=== PATIENT | female | born 2000 | race Caucasian/White ===

== ENCOUNTER 2024-04-22 07:46 | Emergency (ER) | payer OTHER, SELFPAY ==
[2024-04-22 08:12] VITALS: BP 98/75; PULSE 86; TEMP 38.2; O2SAT 100; BMI 20.3
[2024-04-22 08:49] VITALS: BP 100/80; PULSE 68; O2SAT 100
--- NOTE | 2024-04-22 08:49 | ED.GENADUL1 ---
HPI HPI - General Adult General Chief complaint: Skin/Abscess/Foreign Body Stated complaint: GENERAL WEAKNESS/HEADACHE Time Seen by Provider: 04/22/24 07:51 History of Present Illness HPI narrative: Patient presents to ED complaining of left breast tenderness and redness. She said she noticed yesterday her left breast was sore and then today she noticed some redness. She has a low-grade temperature of 100.8. She is alert and oriented no acute distress no nausea vomiting. She is breast-feeding her 1-1/2-year-old baby. Patient states she has not had this happen before. She did get in the hot shower and try to massage it she said no purulent drainage has come out just regular breastmilk. The patient denies any abdominal pain chest pain cough or any other concerns at this time. Related Data Home Medications ?Medication ?Instructions ?Recorded ?Confirmed No Known Home Medications 04/22/24 04/22/24 Previous Rx's ?Medication ?Instructions ?Recorded acetaminophen 325 mg tablet 325 mg PO Q6H PRN pain #20 tabs 04/22/24 (Tylenol) dicloxacillin 500 mg capsule 500 mg PO Q6H 7 days #28 caps 04/22/24 ibuprofen 800 mg tablet 800 mg PO Q8H #20 tabs 04/22/24 Allergies Allergy/AdvReac Type Severity Reaction Status Date / Time No Known Drug Allergies Allergy Verified 04/22/24 08:15 Opioid HPI Opioid Management Most Recent Opioid Data: No Data to Display Review of Systems ROS Status of ROS 10 or more systems reviewed and unremarkable except as noted in history and below PFSH PFSH Social History Little interest or pleasure in doing things: not at all Feeling down, depressed, or hopeless: not at all Exam Narrative Exam Narrative: Time Seen: [] Vital Signs: [Per nurse's notes.] General: [Alert] Skin: [Warm, dry, no rash.] Head: [Normocephalic, atraumatic.] Neck: [Supple, trachea midline.] Eye: [Pupils are equal, round and reactive to light, extraocular movements are intact, normal conjunctiva.] Ears, nose, mouth and throat: oral mucosa moist. Cardiovascular: [Regular rate and rhythm, no murmur.] Respiratory: [Lungs are clear to auscultation, respirations are non-labored, breath sounds are equal.] Chest wall: Tenderness to palpation and streaking erythematous skin at the 11 o'clock position on the left breast. No severe abscess no purulent discharge Gastrointestinal: [Soft, nontender, non distended, normal bowel sounds.] MSK: 5 out of 5 muscle strength x 4 extremities no calf pain or edema Lymphatics: [No lymphadenopathy.] Psychiatric: [Cooperative, appropriate mood & affect.] Neurological: [Alert and oriented to person, place, time, and situation, no focal neurological deficit observed.] Constitutional Vital Signs, click to edit/add: Last Vital Signs Temp 100.8 F H 04/22/24 08:12 Pulse 86 04/22/24 08:12 Resp 18 04/22/24 08:12 BP 98/75 04/22/24 08:12 Pulse Ox 100 04/22/24 08:12 Course Vital Signs Vital signs: Vital Signs Temperature 100.8 F H 04/22/24 08:12 Pulse Rate 86 04/22/24 08:12 Respiratory Rate 18 04/22/24 08:12 Blood Pressure 98/75 04/22/24 08:12 Pulse Oximetry 100 04/22/24 08:12 Temperature 100.8 F H 04/22/24 08:12 Pulse Rate 86 04/22/24 08:12 Respiratory Rate 18 04/22/24 08:12 Blood Pressure 98/75 04/22/24 08:12 Pulse Oximetry 100 04/22/24 08:12 Medical Decision Making MDM Narrative Medical decision making narrative: Patient has a low-grade fever with evidence of mastitis on exam. Patient will be sent home with antibiotics and Tylenol and Motrin for the pain and fever. Please continue to breast-feed, soak with warm compresses, hot shower warm bath and continue to express of breastmilk. Return to emergency room certainly if you cannot keep the antibiotics down or if there are any further concerns like severe fever vomiting weakness or any other concerns. Follow-up with [employer] to ensure resolution. Patient is comfortable with care plan for home. Differential Diagnosis Differential Diagnosis: Viral syndrome, mastitis, abscess, cellulitis Discharge Plan Discharge Chief Complaint: Skin/Abscess/Foreign Body Clinical Impression: Mastitis Patient Disposition: Home, Self-Care Time of Disposition Decision: 08:43 Condition: Good Mode of Transportation: Private Vehicle Prescriptions / Home Meds: New dicloxacillin 500 mg capsule 500 mg PO Q6H 7 Days Qty: 28 0RF ibuprofen 800 mg tablet 800 mg PO Q8H Qty: 20 0RF acetaminophen [Tylenol] 325 mg tablet 325 mg PO Q6H PRN (Reason: pain) Qty: 20 0RF No Action No Known Home Medications Print Language: Swedish Instructions: Mastitis (ED) Referrals: Physician,Non-Staff, MD [Primary Care Provider] - 1 week
== END 2024-04-22 08:50 | disposition home or self-care (01) ==
PROVIDERS: Emergency Provider Emergency Medicine
DX: N61.0 Mastitis without abscess (principal); R50.9 Fever, unspecified
CPT/HCPCS: 99283

== ENCOUNTER 2024-06-22 12:26 | Emergency (ER) | payer OTHER, SELFPAY ==
[2024-06-22 12:32] VITALS: BP 102/73; PULSE 96; TEMP 37.4; O2SAT 98; BMI 20.6
--- OUTSIDE RECORDS SUMMARY | 2024-06-22 12:45 | XMS_ITS | CCD ---
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 WBC (Bld) 0.5 % Normal . [facility] Comment on above: Order Comment: Comme nt Draw at 630 am Performed By: #### C BC #### [address] Eosinophils (Bld) [#/Vol] 0.5 10*3/uL High 0.0-0.45 [facility] Comment on above: Order Comment: Comme nt Draw at 630 am Performed By: #### C BC #### [address] Eosinophils/100 WBC (Bld) 4.0 % Normal . [facility] Comment on above: Order Comment: Comme nt Draw at 630 am Performed By: #### C BC #### [address] Erythrocyte distribution width (RBC) [Ratio] 12.2 % Normal 11.9-15.3 [facility] Comment on above: Order Comment: Comme nt Draw at 630 am Performed By: #### C BC #### [address] Hematocrit (Bld) [Volume fraction] 33.4 % Low 34.0-46.4 [facility] Comment on above: Order Comment: Comme nt Draw at 630 am Performed By: #### C BC #### [address] Hemoglobin (Bld) [Mass/Vol] 11.3 g/dL Low 11.8-15.4 [facility] Comment on above: Order Comment: Comme nt Draw at 630 am Performed By: #### C BC #### [address] Lymphocytes (Bld) [#/Vol] 3.7 10*3/uL Normal 1.00-4.8 [facility] Comment on above: Order Comment: Comme nt Draw at 630 am Performed By: #### C BC #### [address] Lymphocytes/100 WBC (Bld) 28.3 % Normal . [facility] Comment on above: Order Comment: Comme nt Draw at 630 am Performed By: #### C BC #### [address] [place] [address] [place] MCH (RBC) [Entitic mass] 30.9 pg Normal 24.7-34.3 [facility] Comment on above: Order Comment: Comme nt Draw at 630 am Performed By: #### C BC #### [address] MCV (RBC) [Entitic vol] 91.1 fL Normal 80-100 [facility] Comment on above: Order Comment: Comme nt Draw at 630 am Performed By: #### C BC #### [address] Mean Corpuscular HGB Conc 33.9 g/dL Normal 32.0-35.0 [facility] Comment on above: Order Comment: Comme nt Draw at 630 am Performed By: #### C BC #### [address] Monocytes (Bld) [#/Vol] 1.1 10*3/uL High 0.0-0.8 [facility] Comment on above: Order Comment: Comme nt Draw at 630 am Performed By: #### C BC #### [address] Monocytes/100 WBC (Bld) 8.5 % Normal . [facility] Comment on above: Order Comment: Comme nt Draw at 630 am Performed By: #### C BC #### [address] Neutrophils (Bld) [#/Vol] 7.6 10*3/uL Normal 1.8-7.7 [facility] Comment on above: Order Comment: Comme nt Draw at 630 am Performed By: #### C BC #### [place] [address] [place] Neutrophils/100 WBC (Bld) 58.7 % Normal . [facility] Comment on above: Order Comment: Comme nt Draw at 630 am Performed By: #### C BC #### [place] [address] [place] NRBC% 0.1 /100{WBC} Normal 0-0.5 [facility] Comment on above: Order Comment: Comme nt Draw at 630 am Performed By: #### C BC #### [address] Platelet mean volume (Bld) [Entitic vol] 10.7 fL Normal 6.3-10.7 [facility] Comment on above: Order Comment: Comme nt Draw at 630 am Performed By: #### C BC #### [address] Platelets (Bld) [#/Vol] 166 10*3/uL Normal 150-450 [facility] Comment on above: Order Comment: Comme nt Draw at 630 am Performed By: #### C BC #### [address] RBC (Bld) [#/Vol] 3.67 10*6/uL Normal 3.60-5.00 [facility] Comment on above: Order Comment: Comme nt Draw at 630 am Performed By: #### C BC #### [address] WBC (Bld) [#/Vol] 12.9 10*3/uL High 3.8-11.6 [facility] Comment on above: Order Comment: Comme nt Draw at 630 am Performed By: #### C BC #### [place] [address] [place] Eosinophils Auto (Bld) [#/Vo l]Ordered By: Gera Bower on 10-24-2022 Eosinophils (Bld) [#/Vol] 0.5 10*3/uL 0.0-0.45 [facility] Eosinophils/100 WBC Auto (Bl d)Ordered By: Gera Bower on 10-24-2022 Eosinophils/100 WBC (Bld) 4.0 % . [facility] Erythrocyte distribution wid th Auto (RBC) [Ratio]Ordered By: Gera Bower on 10-24-2022 Erythrocyte distribution width (RBC) [Ratio] 12.2 % 11.9-15.3 [facility] Hematocrit Auto (Bld) [Volum e fraction]Ordered By: Gera Bower on 10-24-2022 Hematocrit (Bld) [Volume fraction] 33.4 % 34.0-46.4 [facility] Hemoglobin [Mass/volume] in BloodOrdered By: Gera Bower on 10-24-2022 Hemoglobin (Bld) [Mass/Vol] 11.3 g/dL 11.8-15.4 [facility] Leukocytes [#/volume] correc rodriguez for nucleated erythrocytes in Blood by Automated counOrdered By: Gera Bower on 10-24-2022 WBC corrected for nucl RBC Auto (Bld) [#/Vol] 12.9 10*3/uL 3.8-11.6 [facility] Lymphocytes Auto (Bld) [#/Vo l]Ordered By: Gera Bower on 10-24-2022 Lymphocytes (Bld) [#/Vol] 3.7 10*3/uL 1.00-4.8 [facility] Lymphocytes/100 WBC Auto (Bl d)Ordered By: Gera Bower on 10-24-2022 Lymphocytes/100 WBC (Bld) 28.3 % . [facility] MCH Auto (RBC) [Entitic mass ]Ordered By: Gera Bower on 10-24-2022 MCH (RBC) [Entitic mass] 30.9 pg 24.7-34.3 [facility] MCHC Auto (RBC) [Mass/Vol]Or dered By: Gera Bower on 10-24-2022 MCHC (RBC) [Mass/Vol] 33.9 g/dL 32.0-35.0 [facility] MCV Auto (RBC) [Entitic vol] Ordered By: Gera Bower on 10-24-2022 MCV (RBC) [Entitic vol] 91.1 fL 80-100 [facility] Monocytes Auto (Bld) [#/Vol] Ordered By: Gera Bower on 10-24-2022 Monocytes (Bld) [#/Vol] 1.1 10*3/uL 0.0-0.8 [facility] Monocytes/100 WBC Auto (Bld) Ordered By: Gera Bower on 10-24-2022 Monocytes/100 WBC (Bld) 8.5 % . [facility] Neutrophils Auto (Bld) [#/Vo l]Ordered By: Gera Bower on 10-24-2022 Neutrophils (Bld) [#/Vol] 7.6 10*3/uL 1.8-7.7 [facility] Neutrophils/100 WBC Auto (Bl d)Ordered By: Gera Bower on 10-24-2022 Neutrophils/100 WBC (Bld) 58.7 % . [facility] Nucleated erythrocytes [Pres ence] in Blood by Automated countOrdered By: Gera Bower on 10-24-2022 Nucleated RBC Auto Ql (Bld) 0.1 /100{WBC} 0-0.5 [facility] Platelet mean volume Auto (B ld) [Entitic vol]Ordered By: Gera Bower on 10-24-2022 Platelet mean volume (Bld) [Entitic vol] 10.7 fL 6.3-10.7 [facility] Platelets Auto (Bld) [#/Vol] Ordered By: Gera Bower on 10-24-2022 Platelets (Bld) [#/Vol] 166 10*3/uL 150-450 [facility] RBC Auto (Bld) [#/Vol]Ordere d By: Gera Bower on 10-24-2022 RBC (Bld) [#/Vol] 3.67 10*6/uL 3.60-5.00 [facility] WBC Auto (Bld) [#/Vol]Ordere d By: Gera Bower on 10-24-2022 WBC (Bld) [#/Vol] 12.9 10*3/uL 3.8-11.6 [facility] ABO/RH Typeon 10-23-2022 ABO and Rh group Nom (Bld) Blood group O Rh(D) negative Normal [facility] Comment on above: Result Comment: PERF ORMED BY: [facility] [address] [place] [address] PATHOLOGIST PASSENGER AGENT STEFF RHODES M.D. Antibody Identificationon Antibody Identification RHOD Normal [facility] Blood Bank Pathologist Revie won 10-23-2022 Blood Bank Pathologist Review Sent to Pathology Normal [facility] Comment on above: Result Comment: PERF ORMED BY: [place] [address] PATHOLOGIST PASSENGER AGENT STEFF RHODES M.D. Complete Blood Count Auto Di ffon 10-23-2022 Basophils (Bld) [#/Vol] 0.1 10*3/uL Normal 0.0-0.2 [facility] Comment on above: Result Comment: PERF ORMED BY: [place] [address] PATHOLOGIST PASSENGER AGENT STEFF RHODES M.D. Performed By: #### R UT W RFX #### [facility] , #### CBC #### [facility] [address] [place] [address] Basophils/100 WBC (Bld) 0.5 % Normal . [facility] Comment on above: Performed By: #### R UT W RFX #### [facility] , #### CBC #### [facility] [address] [place] [address] [place] Eosinophils (Bld) [#/Vol] 0.3 10*3/uL Normal 0.0-0.45 [facility] Comment on above: Performed By: #### R UT W RFX #### [facility] , #### CBC #### [facility] [address] [place] [address] [place] Eosinophils/100 WBC (Bld) 2.0 % Normal . [facility] Comment on above: Performed By: #### R UT W RFX #### [facility] , #### CBC #### [facility] [address] [place] [address] Erythrocyte distribution width (RBC) [Ratio] 12.0 % Normal 11.9-15.3 [facility] Comment on above: Performed By: #### R UT W RFX #### [facility] , #### CBC #### [facility] [address] [place] [address] Hematocrit (Bld) [Volume fraction] 38.8 % Normal 34.0-46.4 [facility] Comment on above: Performed By: #### R UT W RFX #### [facility] , #### CBC #### [address] Hemoglobin (Bld) [Mass/Vol] 13.2 g/dL Normal 11.8-15.4 [facility] Comment on above: Performed By: #### R UT W RFX #### [facility] , #### CBC #### [address] Lymphocytes (Bld) [#/Vol] 3.1 10*3/uL Normal 1.00-4.8 [facility] Comment on above: Performed By: #### R UT W RFX #### [facility] , #### CBC #### [address] Lymphocytes/100 WBC (Bld) 23.7 % Normal . [facility] Comment on above: Performed By: #### R UT W RFX #### [facility] , #### CBC #### [address] MCH (RBC) [Entitic mass] 31.1 pg Normal 24.7-34.3 [facility] Comment on above: Performed By: #### R UT W RFX #### [facility] , #### CBC #### [address] MCV (RBC) [Entitic vol] 91.6 fL Normal 80-100 [facility] Comment on above: Performed By: #### R UT W RFX #### [facility] , #### CBC #### [facility] [address] [place] [address] Mean Corpuscular HGB Conc 34.0 g/dL Normal 32.0-35.0 [facility] Comment on above: Performed By: #### R UT W RFX #### [facility] , #### CBC #### [facility] [address] [place] [address] Monocytes (Bld) [#/Vol] 1.2 10*3/uL High 0.0-0.8 [facility] Comment on above: Performed By: #### R UT W RFX #### [facility] , #### CBC #### [facility] [address] [place] [address] Monocytes/100 WBC (Bld) 8.9 % Normal . [facility] Comment on above: Performed By: #### R UT W RFX #### [facility] , #### CBC #### [facility] [address] [place] [address] Neutrophils (Bld) [#/Vol] 8.6 10*3/uL High 1.8-7.7 [facility] Comment on above: Performed By: #### R UT W RFX #### [facility] , #### CBC #### [facility] [address] [place] [address] Neutrophils/100 WBC (Bld) 64.9 % Normal . [facility] Comment on above: Performed By: #### R UT W RFX #### [facility] , #### CBC #### [facility] [address] [place] [address] NRBC% 0.1 /100{WBC} Normal 0-0.5 [facility] Comment on above: Performed By: #### R UT W RFX #### [facility] , #### CBC #### [facility] [address] [place] [address] Platelet mean volume (Bld) [Entitic vol] 10.4 fL Normal 6.3-10.7 [facility] Comment on above: Performed By: #### R UT W RFX #### [facility] , #### CBC #### [facility] [address] [place] [address] Platelets (Bld) [#/Vol] 177 10*3/uL Normal 150-450 [facility] Comment on above: Performed By: #### R UT W RFX #### [facility] , #### CBC #### [facility] [address] [place] [address] RBC (Bld) [#/Vol] 4.24 10*6/uL Normal 3.60-5.00 [facility] Comment on above: Performed By: #### R UT W RFX #### [facility] , #### CBC #### [facility] [address] [place] [address] WBC (Bld) [#/Vol] 13.3 10*3/uL High 3.8-11.6 [facility] Comment on above: Performed By: #### R UT W RFX #### [facility] , #### CBC #### [facility] [address] [place] [address] Randy 10-23-2022 L Specimen: [id number] Received: 10/23/22 Status: NELLY Torres Num: [id number] Spec Type: Impression Subm Dr: Gera Bower DO Tissues: PATHBBK Procedures: PATHREVIEW Age/ Patient Sex Location Account Attending Physician Carli Infante [id number] Gera Bower DO SPEC NUM: [id number] RECD: 10/23/22 STATUS: ARMAANRosaura TORRES NUM: [id number] TEX: 10/23/22- SUBM DR: Gera Bowre DO ENTERED: 10/23/[address] [facility] DR: SYLVIE TYPE: Impression DEPT: [place] ENTERED BY: [id number] RECV BY: [id number] ORDERED: PATHREVIEW ORDERED: PATHREVIEW Blood Bank Results Date Time Test Result Flag (u) Normal Range 10/23/22 1344 Ab Screen POSITIVE AB ID 10/23/22 1344 RhoGam D Pathologist Review 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 Specimen: [id number] Received: 10/23/22 Status: NELLY Melissa Num: [id number] Spec Type: Impression Subm Dr: Gera Bower DO Tissues: PATHBBK Procedures: PATHREVIEW Patient: Carli Infante [id number] (Continued) Signed (signatur e on file) Sandi Collier MD 10/24/22 0957 Normal [facility] RFX RhoGAM Screenon RFX RhoGAM Screen Negative Normal [facility] RFX RhoGAM Vials Indicatedon 10-23-2022 RFX RhoGAM Vials Indicated 1 Dose Normal [facility] Comment on above: Result Comment: 1 vi al of RhoGAM is equivalent to 300 mcg. 1 vial will suppress alloimmunization by 15 mL of red cells or 30 mL of whole blood. RHOGAM DOSEon 10-23-2022 RHOGAM DOSE Post Normal [facility] Comment on above: Result Comment: PERF ORMED BY: [place] [address] PATHOLOGIST PASSENGER AGENT STEFF RHODES M.D. RPR w/rfx to Quant TP Abson 10-23-2022 RPR Quantitative 1:2 High NonRea<1:1 [facility] Comment on above: Performed By: #### R UT W RFX #### [facility] , #### CBC #### [facility] [address] [place] [address] [place] RPR, Rfx Quant RPR Reactive Critically abnormal Non Reactive [facility] Comment on above: Performed By: #### R UT W RFX #### [facility] , #### CBC #### [facility] [address] [place] [address] [place] Treponema Pallidum Antibodies Reactive Critically abnormal Non Reactive [facility] Comment on above: Result Comment: Perf ormed at: - [facility] [address] [id number] Joinery Machinist: Ramu Gibbons PhD, Phone: [phone] PERFORMED BY: [place] [address] PATHOLOGIST PASSENGER AGENT STEFF RHODES M.D. Performed By: #### R UT W RFX #### [facility] , #### CBC #### [facility] [address] [place] [address] [place] Rhogam Workupon 10-23-2022 Rhogam Candidate Yes Normal [facility] Comment on above: Result Comment: PERF ORMED BY: [place] [address] PATHOLOGIST PASSENGER AGENT STEFF RHODES M.D. ABO and Rh group Nom (Bld) Blood group O Rh(D) negative Normal [facility] Amphetamine Screen Ql (U)Ord ered By: Gera Bower on 10-22-2022 Amphetamines Ql (U) Negative Negative [facility] Automated erythrocytes count in urine sediment (number/area)Ordered By: Gera Bower on 10-22-2022 RBC Auto (Urine sed) [#/Area] 0-1 [HPF] 0-4 [facility] Automated leukocytes count i n urine sediment (number/area)Ordered By: Gera Bower on 10-22-2022 WBC Auto (Urine sed) [#/Area] 20-49 [HPF] 0-4 [facility] Barbiturates [Presence] in U rine by Screen methodOrdered By: Gera Bower on 10-22-2022 Barbiturates Screen Ql (U) Negative Negative [facility] Benzodiazepines Screen Ql (U )Ordered By: Gera Bower on 10-22-2022 Benzodiazepines Ql (U) Negative Negative [facility] Benzoylecgonine [Presence] i n Urine by Screen methodOrdered By: Gera Bower on 10-22-2022 Benzoylecgonine Screen Ql (U) Negative Negative [facility] Bilirubin Test strip Ql (U)O rdered By: Gera Bower on 10-22-2022 Bilirubin Ql (U) Negative Negative [facility] Color Auto (U)Ordered By: Suze Bower on 10-22-2022 Color (U) Yellow Yellow [facility] Dipstick and Microscopicon 0 10-22-2022 Appearance (U) Clear Normal Clear [facility] Comment on above: Order Comment: Name Collection Type:: Clean-Voided Midstream Performed By: #### O BUDS, ADDONUAPLUS, CUU #### [facility] [address] [place] [address] [place] Bacteria,Urine None Seen Normal None Seen [facility] Comment on above: Order Comment: Name Collection Type:: Clean-Voided Midstream Performed By: #### O BUDS, ADDONUAPLUS, CUU #### [facility] [address] [place] [id number] [place] Bilirubin,Urine Negative Normal Negative [facility] Comment on above: Order Comment: Name Collection Type:: Clean-Voided Midstream Performed By: #### O BUDS, ADDONUAPLUS, CUU #### [facility] [address] [place] [address] [place] Color (U) Yellow Normal Yellow [facility] Comment on above: Order Comment: Name Collection Type:: Clean-Voided Midstream Performed By: #### O BUDS, ADDONUAPLUS, CUU #### [place] [address] [place] Glucose Ql (U) Normal Normal Normal [facility] Comment on above: Order Comment: Name Collection Type:: Clean-Voided Midstream Performed By: #### O BUDS, ADDONUAPLUS, CUU #### [place] [address] [place] Hyaline Casts,Urine 0-8 Normal 0-8 [facility] Comment on above: Order Comment: Name Collection Type:: Clean-Voided Midstream Result Comment: PERF ORMED BY: [place] [address] PATHOLOGIST PASSENGER AGENT STEFF RHODES M.D. Performed By: #### O BUDS, ADDONUAPLUS, CUU #### [place] [address] [place] Ketones Ql (U) Negative Normal Negative [facility] Comment on above: Order Comment: Name Collection Type:: Clean-Voided Midstream Performed By: #### O BUDS, ADDONUAPLUS, CUU #### [place] [address] [place] Leukocyte esterase Test strip Ql (U) 2+ High Negative [facility] Comment on above: Order Comment: Name Collection Type:: Clean-Voided Midstream Performed By: #### O BUDS, ADDONUAPLUS, CUU #### [place] [address] [place] Nitrite,Urine Negative Normal Negative [facility] Comment on above: Order Comment: Name Collection Type:: Clean-Voided Midstream Performed By: #### O BUDS, ADDONUAPLUS, CUU #### [address] Occult Blood,Urine Negative Normal Negative [facility] Comment on above: Order Comment: Name Collection Type:: Clean-Voided Midstream Result Comment: PERF ORMED BY: [place] [address] PATHOLOGIST PASSENGER AGENT STEFF RHODES M.D. Performed By: #### O BUDS, ADDONUAPLUS, CUU #### [address] pH (U) 5.5 [pH] Normal 5.0-9.0 [facility] Comment on above: Order Comment: Name Collection Type:: Clean-Voided Midstream Performed By: #### O BUDS, ADDONUAPLUS, CUU #### [address] Protein,Urine Negative Normal Negative [facility] Comment on above: Order Comment: Name Collection Type:: Clean-Voided Midstream Performed By: #### O BUDS, ADDONUAPLUS, CUU #### [address] RBC LM.HPF (Urine sed) [#/Area] 0 /[HPF] Normal 0-4 [facility] Comment on above: Order Comment: Name Collection Type:: Clean-Voided Midstream Performed By: #### O BUDS, ADDONUAPLUS, CUU #### [address] Specificy [place],Urine 1.011 Normal 1.001-1.030 [facility] Comment on above: Order Comment: Name Collection Type:: Clean-Voided Midstream Performed By: #### O BUDS, ADDONUAPLUS, CUU #### [address] Squamous Epithelial Cell,Urine 0-1 Normal 0-2 [facility] Comment on above: Order Comment: Name Collection Type:: Clean-Voided Midstream Performed By: #### O BUDS, ADDONUAPLUS, CUU #### [facility] [address] [place] [address] [place] Urobilinogen,Urine Normal Normal Normal [facility] Comment on above: Order Comment: Name Collection Type:: Clean-Voided Midstream Performed By: #### O BUDS, ADDONUAPLUS, CUU #### [facility] [address] [place] [address] WBC,Urine 20-49 High 0-4 [facility] Comment on above: Order Comment: Name Collection Type:: Clean-Voided Midstream Performed By: #### O BUDS, ADDONUAPLUS, CUU #### [address] Ketones Auto test strip (U) [Mass/Vol]Ordered By: Gera Bower on 10-22-2022 Ketones (U) [Mass/Vol] Negative Negative [facility] - UrinalysisOrder ed By: Gera Bower on 10-22-2022 Hyaline casts LM Ql (Urine sed) 0-8 [LPF] 0-8 [facility] Nitrite Test strip Ql (U)Ord ered By: Gera Bower on 10-22-2022 Nitrite Ql (U) Negative Negative [facility] No Panel InformationOrdered By: Gera Bower on 10-22-2022 RPR Quantitative Confirmation 1:2 NonRea<1:1 [facility] OB Urine Drug Screen (NO THC )on 10-22-2022 Amphetamine Screen,Urine Negative Normal Negative [facility] Comment on above: Performed By: #### O BUDS, ADDONUAPLUS, CUU #### [place] [address] [place] Barbiturate Screen,Urine Negative Normal Negative [facility] Comment on above: Performed By: #### O BUDS, ADDONUAPLUS, CUU #### [address] Benzodiazepines Screen,Urine Negative Normal Negative [facility] Comment on above: Performed By: #### O BUDS, ADDONUAPLUS, CUU #### [address] Cocaine Screen,Urine Negative Normal Negative [facility] Comment on above: Performed By: #### O BUDS, ADDONUAPLUS, CUU #### [facility] [address] Opiate Screen,Urine Negative Normal Negative [facility] Comment on above: Performed By: #### O BUDS, ADDONUAPLUS, CUU #### [facility] [address] [address] Phencyclidine Screen, Urine Negative Normal Negative [facility] Comment on above: Result Comment: Thes e are unconfirmed results and should not be used for legal purposes. Drug Cut-Off Concentration: AMPH 1000 ng/mL JULISSA 200 ng/mL JAYY 200 ng/mL COCM 300 ng/mL OP 300 ng/mL PCP 25 ng/mL PERFORMED BY: [place] [address] PATHOLOGIST PASSENGER AGENT STEFF RHODES M.D. Performed By: #### O BUDS, ADDONUAPLUS, CUU #### [address] Opiates [Presence] in Urine by Screen methodOrdered By: Gera Bower on 10-22-2022 Opiates Screen Ql (U) Negative Negative [facility] Phencyclidine Screen Ql (U)O rdered By: Gera Bower on 10-22-2022 Phencyclidine Ql (U) Negative Negative [facility] Comment on above: These are unconfirme d results and should not be used for legal purposes. Drug Cut-Off Concentration: AMPH 1000 ng/mL JULISSA 200 ng/mL JAYY 200 ng/mL COCM 300 ng/mL OP 300 ng/mL PCP 25 ng/mL Protein Auto test strip (U) [Mass/Vol]Ordered By: Gera Bower on 10-22-2022 Protein (U) [Mass/Vol] Negative Negative [facility] Reagin Ab [Presence] in Seru m by RPROrdered By: Gera Bower on 10-22-2022 Reagin Ab RPR Ql (S) Reactive Non Reactive [facility] Specific gravity Auto test s trip (U) [Rel density]Ordered By: Gera Bower on 10-22-2022 Specific gravity (U) [Rel density] 1.011 1.001-1.030 [facility] Squamous epithelial cells de tection in urine sediment by light microscopyOrdered By: Gera Bower on 10-22-2022 Epithelial cells.squamous LM Ql (Urine sed) 0-1 [HPF] 0-2 [facility] Treponema pallidum IgG+IgM A b [Presence] in Serum by ImmunoassayOrdered By: Gera Bower on 10-22-2022 T. pallidum IgG+IgM IA Ql (S) Reactive Non Reactive [facility] Comment on above: Performed at: [address] Director: Ramu Gibbons PhD, Phone: [phone] Urine Cultureon 10-22-2022 Bacteria identified Cx Nom (U) 20,000 colonies/ml mixed bacterial skin contaminants 2 Days PERFORMED BY: [place] [address] PATHOLOGIST PASSENGER AGENT STEFF RHODES M.D. [facility] Comment on above: Performed By: #### O BUDS, ADDONUAPLUS, CUU #### [address] Urine bacteria detection by automated methodOrdered By: Gera Bower on 10-22-2022 Bacteria Auto Ql (U) None seen None Seen [facility] Urine clarity by refractomet ry automatedOrdered By: Gera Bower on 10-22-2022 Clarity Refractometry automated (U) Clear Clear [facility] Urine culture routineOrdered By: Gera Bower on 10-22-2022 Bacteria identified Cx Nom (U) 2 Days [facility] Urine glucose measurement by automated test strip (mass/volume)Ordered By: Gera Bower on 10-22-2022 Glucose Auto test strip (U) [Mass/Vol] Normal mg/dL Normal [facility] Urine hemoglobin detection b y automated test stripOrdered By: Gera Bower on 10-22-2022 Hemoglobin Auto test strip Ql (U) Negative Negative [facility] Urine leukocyte esterase det ection by automated test stripOrdered By: Gera Bower on 10-22-2022 Leukocyte esterase Auto test strip Ql (U) 2+ Negative [facility] Urobilinogen Auto test strip (U) [Mass/Vol]Ordered By: Gera Bower on 10-22-2022 Urobilinogen (U) [Mass/Vol] Normal mg/dL Normal [facility] pH Auto test strip (U)Ordere d By: Gera Bower on 10-22-2022 pH (U) 5.5 [pH] 5.0-9.0 [facility] Amphetamine Screen Ql (U)Ord ered By: DAE PRIETO on 09-27-2022 Amphetamines Ql (U) Negative Negative [facility] Automated erythrocytes count in urine sediment (number/area)Ordered By: DAE PRIETO on 09-27-2022 RBC Auto (Urine sed) [#/Area] 5-9 [HPF] 0-4 [facility] Automated leukocytes count i n urine sediment (number/area)Ordered By: DAE PRIETO on 09-27-2022 WBC Auto (Urine sed) [#/Area] 10-19 [HPF] 0-4 [facility] Barbiturates [Presence] in U rine by Screen methodOrdered By: DAE PRIETO on 09-27-2022 Barbiturates Screen Ql (U) Negative Negative [facility] Benzodiazepines Screen Ql (U )Ordered By: DAE PRIETO on 09-27-2022 Benzodiazepines Ql (U) Negative Negative [facility] Benzoylecgonine [Presence] i n Urine by Screen methodOrdered By: DAE PRIETO on 09-27-2022 Benzoylecgonine Screen Ql (U) Negative Negative [facility] Bilirubin Test strip Ql (U)O rdered By: DAE PRIETO on 09-27-2022 Bilirubin Ql (U) Negative Negative [facility] Color Auto (U)Ordered By: LASHAWN PRIETO on 09-27-2022 Color (U) Yellow Yellow [facility] Dipstick and Microscopicon 0 09-27-2022 Appearance (U) Clear Normal Clear [facility] Comment on above: Order Comment: Name Collection Type:: Clean-Voided Midstream Performed By: #### O BUDS, ADDONUAPLUS, CUU #### [place] [address] [place] Bacteria,Urine None Seen Normal None Seen [facility] Comment on above: Order Comment: Name Collection Type:: Clean-Voided Midstream Performed By: #### O BUDS, ADDONUAPLUS, CUU #### [place] [address] [place] Bilirubin,Urine Negative Normal Negative [facility] Comment on above: Order Comment: Name Collection Type:: Clean-Voided Midstream Performed By: #### O BUDS, ADDONUAPLUS, CUU #### [address] Color (U) Yellow Normal Yellow [facility] Comment on above: Order Comment: Name Collection Type:: Clean-Voided Midstream Performed By: #### O BUDS, ADDONUAPLUS, CUU #### [place] [address] [place] Glucose Ql (U) Normal Normal Normal [facility] Comment on above: Order Comment: Name Collection Type:: Clean-Voided Midstream Performed By: #### O BUDS, ADDONUAPLUS, CUU #### [address] Hyaline Casts,Urine 0-8 Normal 0-8 [facility] Comment on above: Order Comment: Name Collection Type:: Clean-Voided Midstream Result Comment: PERF ORMED BY: [place] [address] PATHOLOGIST PASSENGER AGENT STEFF RHODES M.D. Performed By: #### O BUDS, ADDONUAPLUS, CUU #### [place] [address] [place] Ketones Ql (U) Trace High Negative [facility] Comment on above: Order Comment: Name Collection Type:: Clean-Voided Midstream Performed By: #### O BUDS, ADDONUAPLUS, CUU #### [place] [address] [place] Leukocyte esterase Test strip Ql (U) 2+ High Negative [facility] Comment on above: Order Comment: Name Collection Type:: Clean-Voided Midstream Performed By: #### O BUDS, ADDONUAPLUS, CUU #### [place] [address] [place] Nitrite,Urine Negative Normal Negative [facility] Comment on above: Order Comment: Name Collection Type:: Clean-Voided Midstream Performed By: #### O BUDS, ADDONUAPLUS, CUU #### [address] Occult Blood,Urine 3+ High Negative [facility] Comment on above: Order Comment: Name Collection Type:: Clean-Voided Midstream Result Comment: PERF ORMED BY: [place] [address] PATHOLOGIST PASSENGER AGENT STEFF RHODES M.D. Performed By: #### O BUDS, ADDONUAPLUS, CUU #### [address] pH (U) 6.0 [pH] Normal 5.0-9.0 [facility] Comment on above: Order Comment: Name Collection Type:: Clean-Voided Midstream Performed By: #### O BUDS, ADDONUAPLUS, CUU #### [place] [address] [place] Protein,Urine Negative Normal Negative [facility] Comment on above: Order Comment: Name Collection Type:: Clean-Voided Midstream Performed By: #### O BUDS, ADDONUAPLUS, CUU #### [place] [address] [place] RBC,Urine 5-9 High 0-4 [facility] Comment on above: Order Comment: Name Collection Type:: Clean-Voided Midstream Performed By: #### O BUDS, ADDONUAPLUS, CUU #### [address] Specificy [place],Urine 1.005 Normal 1.001-1.030 [facility] Comment on above: Order Comment: Name Collection Type:: Clean-Voided Midstream Performed By: #### O BUDS, ADDONUAPLUS, CUU #### [facility] [address] [place] [address] Squamous Epithelial Cell,Urine 5-9 High 0-2 [facility] Comment on above: Order Comment: Name Collection Type:: Clean-Voided Midstream Performed By: #### O BUDS, ADDONUAPLUS, CUU #### [facility] [address] [place] [address] Urobilinogen,Urine Normal Normal Normal [facility] Comment on above: Order Comment: Name Collection Type:: Clean-Voided Midstream Performed By: #### O BUDS, ADDONUAPLUS, CUU #### [address] WBC,Urine 10-19 High 0-4 [facility] Comment on above: Order Comment: Name Collection Type:: Clean-Voided Midstream Performed By: #### O BUDS, ADDONUAPLUS, CUU #### [address] Ketones Auto test strip (U) [Mass/Vol]Ordered By: DAE PRIETO on 09-27-2022 Ketones (U) [Mass/Vol] Trace Negative [facility] Laboratory - UrinalysisOrder ed By: DAE PRIETO on 09-27-2022 Hyaline casts LM Ql (Urine sed) 0-8 [LPF] 0-8 [facility] Nitrite Test strip Ql (U)Ord ered By: DAE PRIETO on 09-27-2022 Nitrite Ql (U) Negative Negative [facility] OB Urine Drug Screen (NO THC )on 09-27-2022 Amphetamine Screen,Urine Negative Normal Negative [facility] Comment on above: Performed By: #### O BUDS, ADDONUAPLUS, CUU #### [address] Barbiturate Screen,Urine Negative Normal Negative [facility] Comment on above: Performed By: #### O BUDS, ADDONUAPLUS, CUU #### [place] [address] [place] Benzodiazepines Screen,Urine Negative Normal Negative [facility] Comment on above: Performed By: #### O BUDS, ADDONUAPLUS, CUU #### [place] [address] [place] Cocaine Screen,Urine Negative Normal Negative [facility] Comment on above: Performed By: #### O BUDS, ADDONUAPLUS, CUU #### [place] [address] [place] Opiate Screen,Urine Negative Normal Negative [facility] Comment on above: Performed By: #### O BUDS, ADDONUAPLUS, CUU #### [address] Phencyclidine Screen, Urine Negative Normal Negative [facility] Comment on above: Result Comment: Thes e are unconfirmed results and should not be used for legal purposes. Drug Cut-Off Concentration: AMPH 1000 ng/mL JULISSA 200 ng/mL JAYY 200 ng/mL COCM 300 ng/mL OP 300 ng/mL PCP 25 ng/mL PERFORMED BY: [place] [address] PATHOLOGIST PASSENGER AGENT STEFF RHODES M.D. Performed By: #### O BUDS, ADDONUAPLUS, CUU #### [address] Opiates [Presence] in Urine by Screen methodOrdered By: DAE PRIETO on 09-27-2022 Opiates Screen Ql (U) Negative Negative [facility] Phencyclidine Screen Ql (U)O rdered By: DAE PRIETO on 09-27-2022 Phencyclidine Ql (U) Negative Negative [facility] Comment on above: These are unconfirme d results and should not be used for legal purposes. Drug Cut-Off Concentration: AMPH 1000 ng/mL JULISSA 200 ng/mL JAYY 200 ng/mL COCM 300 ng/mL OP 300 ng/mL PCP 25 ng/mL Protein Auto test strip (U) [Mass/Vol]Ordered By: DAE PRIETO on 09-27-2022 Protein (U) [Mass/Vol] Negative Negative [facility] Specific gravity Auto test s trip (U) [Rel density]Ordered By: DAE PRIETO on 09-27-2022 Specific gravity (U) [Rel density] 1.005 1.001-1.030 [facility] Squamous epithelial cells de tection in urine sediment by light microscopyOrdered By: DAE PRIETO on 09-27-2022 Epithelial cells.squamous LM Ql (Urine sed) 5-9 [HPF] 0-2 [facility] Urine Cultureon 09-27-2022 Bacteria identified Cx Nom (U) <9,000 colonies/ml mixed bacterial skin contaminants 2 Days PERFORMED BY: [place] [address] PATHOLOGIST PASSENGER AGENT STEFF RHODES M.D. Normal [facility] Comment on above: Performed By: #### O BUDS, ADDONUAPLUS, CUU #### [address] Urine bacteria detection by automated methodOrdered By: DAE PRIETO on 09-27-2022 Bacteria Auto Ql (U) None seen None Seen [facility] Urine clarity by refractomet ry automatedOrdered By: DAE PRIETO on 09-27-2022 Clarity Refractometry automated (U) Clear Clear [facility] Urine glucose measurement by automated test strip (mass/volume)Ordered By: DAE PRIETO on 09-27-2022 Glucose Auto test strip (U) [Mass/Vol] Normal mg/dL Normal [facility] Urine hemoglobin detection b y automated test stripOrdered By: DAE PRIETO on 09-27-2022 Hemoglobin Auto test strip Ql (U) 3+ Negative [facility] Urine leukocyte esterase det ection by automated test stripOrdered By: DAE PRIETO on 09-27-2022 Leukocyte esterase Auto test strip Ql (U) 2+ Negative [facility] Urobilinogen Auto test strip (U) [Mass/Vol]Ordered By: DAE PRIETO on 09-27-2022 Urobilinogen (U) [Mass/Vol] Normal mg/dL Normal [facility] pH Auto test strip (U)Ordere d By: DAE PRIETO on 09-27-2022 pH (U) 6.0 [pH] 5.0-9.0 [facility] Strep B Cultureon 09-24-2022 Strep B Culture Reason for Exam 36 weeks gestation of Vaginal/Rectal Strep B Only Cult No Group B Beta Streptococcus Isolated 3 Days PERFORMED BY: [place] [address] PATHOLOGIST PASSENGER AGENT STEFF RHODES M.D. Normal [facility] Comment on above: Performed By: #### C USTB #### [address] Hematocrit Auto (Bld) [Volum e fraction]Ordered By: Gera Bower on 07-23-2022 Hematocrit (Bld) [Volume fraction] 34.4 % 34.0-46.4 [facility] Hemoglobin [Mass/volume] in BloodOrdered By: Gera Bower on 07-23-2022 Hemoglobin (Bld) [Mass/Vol] 11.8 g/dL 11.8-15.4 [facility] No Panel InformationOrdered By: Gera Bower on 07-23-2022 Glucose 1 Hour Postprandial (Timed) 85 mg/dL 60-140 [facility] Urine culture routineOrdered By: Gera Bower on 07-04-2022 Bacteria identified Cx Nom (U) No Growth 2 Days [facility] Bacteria identified Cx Nom (U) No Growth 2 Days [facility] Basophils Auto (Bld) [#/Vol] Ordered By: Gera Bower on 03-26-2022 Basophils (Bld) [#/Vol] 0.0 10*3/uL 0.0-0.2 [facility] Basophils/100 WBC Auto (Bld) Ordered By: Gera Bower on 03-26-2022 Basophils/100 WBC (Bld) 0.6 % . [facility] Eosinophils Auto (Bld) [#/Vo l]Ordered By: Gera Bower on 03-26-2022 Eosinophils (Bld) [#/Vol] 0.1 10*3/uL 0.0-0.45 [facility] Eosinophils/100 WBC Auto (Bl d)Ordered By: Gera Bower on 03-26-2022 Eosinophils/100 WBC (Bld) 2.5 % . [facility] Erythrocyte distribution wid th Auto (RBC) [Ratio]Ordered By: Gera Bower on 03-26-2022 Erythrocyte distribution width (RBC) [Ratio] 12.5 % 11.9-15.3 [facility] Hematocrit Auto (Bld) [Volum e fraction]Ordered By: Gera Bower on 03-26-2022 Hematocrit (Bld) [Volume fraction] 38.6 % 34.0-46.4 [facility] Hemoglobin [Mass/volume] in BloodOrdered By: Gera Bower on 03-26-2022 Hemoglobin (Bld) [Mass/Vol] 13.0 g/dL 11.8-15.4 [facility] Laboratory - Hematology and Cell countsOrdered By: Gera Bower on 03-26-2022 Nucleated RBC/100 WBC (Bld) [Ratio] 0.1 % 0-0.5 [facility] Leukocytes [#/volume] in Blo od by Automated countOrdered By: Gera Bower on 03-26-2022 WBC (Bld) [#/Vol] 5.1 10*3/uL 4.5-11.0 [facility] Lymphocytes Auto (Bld) [#/Vo l]Ordered By: Gera Bower on 03-26-2022 Lymphocytes (Bld) [#/Vol] 2.3 10*3/uL 1.00-4.8 [facility] Lymphocytes/100 WBC Auto (Bl d)Ordered By: Gera Bower on 03-26-2022 Lymphocytes/100 WBC (Bld) 44.8 % . [facility] MCH Auto (RBC) [Entitic mass ]Ordered By: Gera Bower on 03-26-2022 MCH (RBC) [Entitic mass] 30.8 pg 24.7-34.3 [facility] MCHC Auto (RBC) [Mass/Vol]Or dered By: Gera Bower on 03-26-2022 MCHC (RBC) [Mass/Vol] 33.7 g/dL 32.0-35.0 [facility] MCV Auto (RBC) [Entitic vol] Ordered By: Gera Bower on 03-26-2022 MCV (RBC) [Entitic vol] 91.3 fL 80-100 [facility] Monocytes Auto (Bld) [#/Vol] Ordered By: Gera Bower on 03-26-2022 Monocytes (Bld) [#/Vol] 0.6 10*3/uL 0.0-0.8 [facility] Monocytes/100 WBC Auto (Bld) Ordered By: Gera Bower on 03-26-2022 Monocytes/100 WBC (Bld) 10.9 % . [facility] Neutrophils Auto (Bld) [#/Vo l]Ordered By: Gera Bower on 03-26-2022 Neutrophils (Bld) [#/Vol] 2.1 10*3/uL 1.8-7.7 [facility] Neutrophils/100 WBC Auto (Bl d)Ordered By: Gera Bower on 03-26-2022 Neutrophils/100 WBC (Bld) 41.2 % . [facility] Platelet mean volume Auto (B ld) [Entitic vol]Ordered By: Gera Bower on 03-26-2022 Platelet mean volume (Bld) [Entitic vol] 9.0 fL 6.3-10.7 [facility] Platelets Auto (Bld) [#/Vol] Ordered By: Gera Bower on 03-26-2022 Platelets (Bld) [#/Vol] 289 10*3/uL 150-450 [facility] RBC Auto (Bld) [#/Vol]Ordere d By: Gera Bower on 03-26-2022 RBC (Bld) [#/Vol] 4.23 10*6/uL 3.60-5.00 [facility] CHLAMYDIA/GONOCOCCUS TOSHIA (SW AB/URINE/PAPon 01-24-2022 Chlamydia trachomatis, TOSHIA Negative Normal Negative [facility] Comment on above: Performed By: #### C T/NGNA #### [facility] [address] [address] [address] Shamika Uribe Neisseria gonorrhoeae, TOSHIA Negative Normal Negative [facility] Comment on above: Performed By: #### C T/NGNA #### [facility] [address] [address] [address] Shamika Uribe ER URINE PROFILEon 2 Bilirubin Ql (U) Negative Normal NEGATIVE [facility] Comment on above: Performed By: #### E RUR, PREGU #### [facility] Laboratory [address] [place] [address] Dr. Shamika Uribe Clarity (U) CLEAR Normal CLEAR [facility] Comment on above: Performed By: #### E RUR, PREGU #### [facility] [address] [place] [address] Dr. Shamika Uribe Color (U) LT. YELLOW Normal YELLOW [facility] Comment on above: Performed By: #### E RUR, PREGU #### [facility] [address] [place] [address] Dr. Shamika Uribe ERUAHD A micrscopic examination will be performed if indicated. Normal [facility] Comment on above: Performed By: #### E RUR, PREGU #### [facility] [address] [place] [address] Dr. Shamika Uribe Glucose Ql (U) Negative Normal NEGATIVE [facility] Comment on above: Performed By: #### E RUR, PREGU #### [facility] [address] [place] [address] Dr. Shamika Uribe Hemoglobin Ql (U) Negative Normal NEGATIVE [facility] Comment on above: Performed By: #### E RUR, PREGU #### [facility] [address] [place] [address] Dr. Shamika Uribe Ketones Ql (U) Negative Normal NEGATIVE [facility] Comment on above: Performed By: #### E RUR, PREGU #### [facility] [address] [place] [address] Dr. Shamika Uribe LEUKOCYTES Negative Normal NEGATIVE [facility] Comment on above: Performed By: #### E RUR, PREGU #### [facility] [address] [place] [address] Dr. Shamika Uribe Nitrite Ql (U) Negative Normal NEGATIVE [facility] Comment on above: Performed By: #### E RUR, PREGU #### [facility] [address] [place] [address] Dr. Shamika Uribe pH (U) 7.5 [pH] Normal 5-9 [facility] Comment on above: Performed By: #### E RUR, PREGU #### [facility] [address] [place] [address] Dr. Shamika Uribe SPEC GRAVITY 1.010 Normal 1.005-<=1.02 5 [facility] Comment on above: Performed By: #### E RUR, PREGU #### [facility] [address] [place] [address] Dr. Shamika Uribe UA PROTEIN Negative Normal NEGATIVE/ TRACE [facility] Comment on above: Performed By: #### E RUR, PREGU #### [facility] [address] [place] [address] Dr. Shamika Uribe UR MICRO IND NOT INDICATED Normal [facility] Comment on above: Performed By: #### E RUR, PREGU #### [facility] [address] [place] [address] Dr. Shamika Uribe Urobilinogen Qn (U) 0.2 {Ashvin'U}/dL Normal 0.2 - 1. 0 [facility] Comment on above: Performed By: #### E RUR, PREGU #### [facility] [address] [place] [address] Dr. Shamika Uribe URon 01-20-2022 , QUAL Negative Normal NEGATIVE [facility] Comment on above: Performed By: #### E RUR, PREGU #### [facility] [address] [place] [address] Dr. Shamika Uribe Vital Signs Date Time Vital Sign Value Performing Clinician Facility 07-10-2023 16:19-0500 Body height 160 cm Gera Visci DO Work Phone: [facility] 07-10-2023 16:19-0500 Body mass index (BMI) [Ratio] 21.43 kg/m2 Gera Visci DO Work Phone: [facility] 07-10-2023 16:19-0500 Body weight 54.88 kg Gera Visci DO Work Phone: [facility] 07-10-2023 16:19-0500 Diastolic blood pressure 58 mm[Hg] Gera Bower DO Work Phone: [facility] 07-10-2023 16:19-0500 Systolic blood pressure 102 mm[Hg] Gera Bower DO Work Phone: [facility] 10-25-2022 23:43-0400 Respiratory rate 18 /min PHYSICIAN NO [facility] 10-25-2022 21:14-0400 Body temperature 98.2 [degF] PHYSICIAN NO [facility] 10-25-2022 21:14-0400 Diastolic blood pressure 78 mm[Hg] PHYSICIAN NO [facility] 10-25-2022 21:14-0400 Heart rate 65 /min PHYSICIAN NO [facility] 10-25-2022 21:14-0400 SaO2% (BldA) [Mass fraction] 99 % PHYSICIAN NO [facility] 10-25-2022 21:14-0400 Systolic blood pressure 119 mm[Hg] PHYSICIAN NO [facility] 10-22-2022 21:27-0400 Body height 162.56 cm PHYSICIAN NO [facility] 10-22-2022 21:27-0400 Body weight 64.41 kg PHYSICIAN NO [facility] 10-19-2022 14:48-0400 Respiratory rate 18 /min PHYSICIAN NO [facility] 10-19-2022 14:32-0400 Diastolic blood pressure 58 mm[Hg] PHYSICIAN NO [facility] 10-19-2022 14:32-0400 Heart rate 83 /min PHYSICIAN NO [facility] 10-19-2022 14:32-0400 SaO2% (BldA) [Mass fraction] 97 % PHYSICIAN NO [facility] 10-19-2022 14:32-0400 Systolic blood pressure 112 mm[Hg] PHYSICIAN NO [facility] 10-19-2022 14:23-0400 Body height 162.56 cm PHYSICIAN NO [facility] 10-19-2022 14:23-0400 Body weight 64.41 kg PHYSICIAN NO [facility] 09-27-2022 00:14-0400 SaO2% (BldA) [Mass fraction] 96 % PHYSICIAN NO [facility] 09-27-2022 00:08-0400 Diastolic blood pressure 62 mm[Hg] PHYSICIAN NO [facility] 09-27-2022 00:08-0400 Heart rate 105 /min PHYSICIAN NO [facility] 09-27-2022 00:08-0400 Respiratory rate 18 /min PHYSICIAN NO [facility] 09-27-2022 00:08-0400 Systolic blood pressure 108 mm[Hg] PHYSICIAN NO [facility] 09-27-2022 00:04-0400 Body height 162.56 cm PHYSICIAN NO [facility] 09-27-2022 00:04-0400 Body weight 63.5 kg PHYSICIAN NO [facility] 07-23-2022 15:32-0500 Body temperature 98.2 [degF] PHYSICIAN NO [facility] 07-23-2022 15:32-0500 Diastolic blood pressure 58 mm[Hg] PHYSICIAN NO [facility] 07-23-2022 15:32-0500 Heart rate 64 /min PHYSICIAN NO [facility] 07-23-2022 15:32-0500 Respiratory rate 18 /min PHYSICIAN NO [facility] 07-23-2022 15:32-0500 SaO2% (BldA) [Mass fraction] 98 % PHYSICIAN NO [facility] 07-23-2022 15:32-0500 Systolic blood pressure 97 mm[Hg] PHYSICIAN NO [facility] Encounters Encounter Date Encounter Type Care Provider Facility Start: 07-10-2023 End: 07-10-2023 ambulatory GERA A VISCI Not Available Start: 07-10-2023 End: 07-10-2023 Patient encounter status Gera A Visci DO Work Phone: [facility] Start: 07-10-2023 End: 07-10-2023 Periodic preventive med est patient 18-39 yrs Gera A Visci DO Work Phone: [facility] Comment on above: Encounter for gyneco logical examination without abnormal finding (Primary Dx); Encounter for screening examination for sexually transmitted disease; Screening for cervical cancer; Vaginal discharge; Vaginal odor; Screen for STD (sexually transmitted disease) Start: 01-16-2023 ambulatory Juan Pablo Murguia acility:[facility] Start: 01-15-2023 End: 01-15-2023 ambulatory Tex Treviño Jaspreet Martinez Facility:[facility] Start: 01-15-2023 End: 01-15-2023 ambulatory PHYSICIAN NO [facility] Work Phone: Start: 01-15-2023 End: 01-15-2023 Patient encounter procedure PHYSICIAN NO [facility] Work Phone: Start: 10-22-2022 End: 10-26-2022 Evaluation and management of inpatient Gera Visci Facility:[facility] Start: 10-22-2022 End: 10-25-2022 Evaluation and management of inpatient PHYSICIAN NO [facility] [address] Work Phone: Start: 10-19-2022 End: 10-19-2022 ambulatory Gera Visci Facility:[facility] Start: 10-19-2022 End: 10-19-2022 Patient encounter procedure PHYSICIAN NO [facility] [place] - [facility]P Start: 09-27-2022 End: 09-27-2022 ambulatory Dae Printy Facility:[facility] Start: 09-26-2022 End: 09-27-2022 ambulatory PHYSICIAN NO [facility] Work Phone: Start: 09-26-2022 End: 09-27-2022 Patient encounter procedure PHYSICIAN NO [facility] [place] [facility] - [facility]P Start: 09-24-2022 End: 09-24-2022 ambulatory Gera Visci Facility:[facility] Start: 09-24-2022 End: 09-24-2022 Departed Referred PHYSICIAN NO [facility] Work Phone: Start: 07-23-2022 End: 07-23-2022 ambulatory PHYSICIAN NO [facility] Work Phone: Start: 07-23-2022 End: 07-23-2022 Patient encounter procedure PHYSICIAN NO [facility] Work Phone: Start: 07-04-2022 End: 07-04-2022 ambulatory PHYSICIAN NO [facility] Work Phone: Start: 07-04-2022 End: 07-04-2022 Departed Referred PHYSICIAN NO [facility] Work Phone: Start: 03-26-2022 End: 03-26-2022 ambulatory PHYSICIAN NO [facility] Work Phone: Start: 03-26-2022 End: 03-26-2022 Patient encounter procedure PHYSICIAN NO [facility] Start: 01-20-2022 End: 01-20-2022 ambulatory DANIA GARNETT Facility:[facility] Start: 06-17-2021 End: 06-17-[address] DOCTOR COONEY Facility:[facility] Procedures Date Procedure Procedure Detail Performing Clinician Start: 07-11-[address] Visci DO Work Phone: Start: 07-11-2023 Iadna chlamydia trachomatis amplified probe tq Gera A Visci DO Work Phone: Start: 10-23-2022 Antibody screen Tex butt Jr Start: 10-22-2022 Urine culture PHYSICIAN NO FAMILY Start: 07-04-2022 Urine culture PHYSICIAN NO FAMILY Plan of Treatment Date Care Activity Detail Author Start: 01-15-2023 Hepatitis B core antibody measurement [facility] Start: 01-15-2023 [facility] Start: 10-25-2022 [facility] Start: 10-23-2022 Hospital admission [facility] Start: 10-22-2022 Hospital admission [facility] Start: 10-22-2022 Delivery of Products of Conception, External Approach Delivery of Products of Conception, External Approach [facility] Start: 10-22-2022 Drainage of Amniotic Fluid, Therapeutic from Products of Conception, Via Natural or Artificial Opening Drainage of Amniotic Fluid, Therapeutic from Products of Conception, Via Natural or Artificial Opening [facility] Start: 10-19-2022 [facility] Start: 10-19-2022 Hospital admission [facility] Start: 09-27-2022 Bacteria identified in Urine by Culture Urine Culture [facility] Start: 09-27-2022 [facility] Start: 09-27-2022 Hospital admission [facility] Start: 09-24-2022 Streptococcus agalac tiae culture Group B Streptococcus Culture [facility] Start: 07-04-2022 Bacteria identified in Urine by Culture [facility] Start: 03-26-2022 [facility] Bacteria identified in Urine by Culture [facility] Hepatitis B virus surface Ag [Presence] in Serum or Plasma by Immunoassay [facility] Work Phone: Hepatitis B virus surface Ag [Presence] in Serum or Plasma by Immunoassay Hepatitis B surface antigen Lab Routine Screen for STD (sexually transmitted disease) Ordered: 07/10/2023 [facility] Comment on above: Ordered: 07/10/2023 Hepatitis C virus Ab [Presence] in Serum or Plasma by Immunoassay Hepatitis C antibody Lab Routine Screen for STD (sexually transmitted disease) Ordered: 07/10/2023 [facility] Comment on above: Ordered: 07/10/2023 Hepatitis C virus Ab Signal/Cutoff in Serum or Plasma by Immunoassay [facility] Work Phone: Hepatitis C virus Ig G Ab [Presence] in Serum or Plasma by Immunoassay [facility] HIV 1+2 Ab+HIV1 p24 Ag [Presence] in Serum or Plasma by Immunoassay [facility] Work Phone: HIV 1/2 ANTIGEN/ANTIBODY, 4TH GEN W/RFL,SCREENING HIV 1/2 ANTIGEN/ANTIBODY, 4TH GEN W/RFL,SCREENING Lab Routine Screen for STD (sexually transmitted disease) Ordered: 07/10/2023 [facility] Comment on above: Ordered: 07/10/2023 Patient Education [facility] Work Phone: Patient referral [facility] Work Phone: Reagin Ab [Presence] in Serum by RPR [facility] Work Phone: Reagin Ab [Presence] in Serum by RPR RPR Lab Routine Screen for STD (sexually transmitted disease) Ordered: 07/10/2023 [facility] Comment on above: Ordered: 07/10/2023 Rubella IgG measurement [facility] Work Phone: THINPREP TIS PAP AND HPV MRNA E6/E7 THINPREP TIS PAP AND HPV MRNA E6/E7 Pathology and Cytology Routine Screening for cervical cancer Ordered: 07/10/2023 [facility] Work Phone: Comment on above: Ordered: 07/10/2023 Immunizations Immunization Date Immunization Notes Care Provider Fa kety 11-16-2019 tetanus toxoid, redu karley diphtheria toxoid, and acellular pertussis vaccine, adsorbed PHYSICIAN NO [facility] Payers Date Payer Category Payer Self-pay [id number] 2022 Medicaid [employer] [facility] [id number] 2022-Present [address] [address] [place] [address] [id number] 1998 Unknown [id number] 1998 Unknown [id number] 1998 Unknown [id number] 1959 Unknown [id number] Unknown [employer] 2 [id number] Unknown [id number] Unknown [id number] Unknown [id number] Unknown [id number] Unknown [id number] Unknown [id number] Social History Date Type Detail Facility Start: 11-16-2019 End: 11-16-2019 Tobacco smoking status [facility] Never smoked tobacco (finding) [facility] Start: 2000 Sex Assigned At Female [facility] Start: 10-23-2022 Tobacco smoking status [facility] Smoker (finding) [facility] Start: 12-29-2022 Tobacco smoking status [facility] Ex-smoker [facility] History of tobacco use Cigarette Smoker [facility] Start: 12-29-2022 Tobacco use and exposure Smokeless tobacco non-user [facility] Start: 07-10-2023 Alcohol intake Ex-drinker (finding) [facility] Start: 11-05-2022 End: 12-05-2022 [facility] of [facility] Start: 11-05-2022 End: 12-05-2022 Alcohol Use Disorder Identification Test - Consumption [AUDIT-C] [facility] How often to you hav e a drink containing alcohol? Monthly or less [facility] How many standard dr inks containing alcohol do you have on a typical day? 1 or 2 [facility] How often do you hav e 6 or more drinks on 1 occasion? Never [facility] Start: 12-29-2022 Alcohol Comment caffeine intake: 1-2 cups per day [facility] Start: 2000 Sex Assigned At Not on file [facility] Goals Date Patient Goal Desired Activity /State Functional Status Date Assessment Result Facility 10-25-2022 Functional status Patient at Baseline [facility] Work Phone: Mental Status Date Assessment Result Facility 10-25-2022 Cognitive function Cognitive Sta tus Patient at Baseline [facility] Work Phone: History of Present illness Narrative 07-10-2023 Gera Bower, - 07/10/2023 3:30 PM EST Note Date & Type Note Facility 07-10-2023 History of Presen t illness Narrative Images from the original note were not included. Gera Bower, Obstetrics and Gynecology Carli Infante 2000 07/10/23 [id number] Yearly Wellness Exam Chief Complaint Patient presents with Gynecologic Exam Yearly. Denies breast, urinary, bowel issues. Vaginal Discharge Some yellow discharge, and some vaginal odor. Visit Vitals BP 102/58 Ht 5' 3 Wt 121 lb LMP (LMP Unknown) Comment: Amenorrhea, breast feeding. Yes BMI 21.43 kg/m OB Status No Periods Smoking Status Former BSA 1.56 m Current Outpatient Medications on File Prior to Visit Medication Sig buprenorphine (Subtex) [address] 16 mg under the tongue 1 (one) time [DISCONTINUED] Vit-Fe Fumarate-FA (M- Plus) 27-1 MG tablet TAKE 1 TABLET BY MOUTH EVERY DAY FOR 30 DAYS No current facility-administered medications on file prior to visit. No Known Allergies Past Medical History: Diagnosis Date Alcohol use disorder Opioid use disorder Pap smear for cervical cancer screening 04/04/2022 Neg Vaccine for VZV (varicella-zoster virus) Past Surgical History: Procedure Laterality Date VAGINAL DELIVERY 07/16/2016 34 weeks OB History Para Term AB Living 2 2 1 1 2 SAB IAB Ectopic Multiple Live Births 2 # Outcome Date GA Lbr Leopoldo/2nd Weight Sex Delivery Anes PTL Lv 2 Term 10/22/22 41w0d F Vag-Spont SANJAY 1 07/16/16 34w0d Vag-Spont SANJAY Obstetric Comments Pap 04-04-22, Neg. ROS General: Denies fevers/chills Eyes: Denies vision changes ENT: Denies neck stiffness, neck mass Endocrine: Denies polydipsia and polyuria Respiratory: Denies shortness of breath Cardiovascular: Denies chest pain and palpitations Gastrointestinal: Denies changes in bowel habits, blood in stool, constipation and diarrhea. Hematology: Denies easy bruising. Women Only: Denies breast masses, skin changes, nipple discharge, abnormal bleeding, pelvic pain and dyspareunia Genitourinary: Denies dysuria, pelvic pain and nocturia Skin: Denies rashes/lesions Neurologic: Denies headaches, dizziness, syncope Psychiatric: Denies hallucinations, suicidal ideas EXAM GENERAL EXAMINATION: Alert, oriented, well developed, well nourished. HEAD: Normocephalic, atraumatic. EYES: KIRSTIE, sclera anicteric. EARS: No obvious hearing deficit. NECK/THYROID: Neck supple no cervical lymphadenopathy no thyromegaly. LYMPH NODES: No axillary, supraclavicular or inguinal adenopathy. SKIN: Warm and dry. No rashes HEART: Regular rate and rhythm. No murmur LUNGS: Clear to auscultation bilaterally. CHEST: Axillary nodes grossly normal. BREASTS: No dominant masses palpable bilaterally, no skin changes, nipple discharge, supra-clavicular or axillary adenopathy. Breasts are slightly full as she is . ABDOMEN: Soft, nontender, nondistended, no hernia or masses palpable. BACK: No obvious scoliosis/kyphosis. FEMALE GENITOURINARY: EFG without sores/lesions, normal vaginal mucosa- white frothy discharge, cervix without lesions, uterus AV, NSSC, no adnexal masses, cul-de-sac negative. EXTREMITIES No edema. NEUROLOGIC: Alert and oriented. PSYCH: Cooperative with exam. ICD-10-CM 1. Encounter for gynecological examination without abnormal finding Z01.419 2. Encounter for screening examination for sexually transmitted disease Z11.3 3. Screening for cervical cancer Z12.4 4. Vaginal discharge N89.8 5. Vaginal odor N89.8 Advised pt to perform monthly self breast exams. Encouraged calcium and Vitamin D intake. She asked to be tested for STDs so we did cultures today. She is going to return for blood work and I did a wet prep which essentially was normal. Her Pap was obtained. She continues on Subutex 8 mg twice daily but says that they are going to try to start weaning her if she wants to get off. Her wet prep today was essentially normal. I thought based on her exam that she would have BV but her epithelial cells all looked clean. I did not see hyphae. There were a few WBCs but nothing significant and no trich. We will see what her cultures and Pap return it with before treating her for anything. If her discharge persists I have encouraged her to come back for re-evaluation. For now she declines any control. documented in this encounter [facility] Evaluation note Note Date & Type Note Facility Evaluation note No assessment information availa ble [facility] Work Phone: Evaluation note Note Date & Type Note Facility Evaluation note Diagnosis Onset Date Status post vaginal delivery acute [facility] Work Phone: Evaluation note Note Date & Type Note Facility Evaluation note Diagnosis Encounter for gynecological examination without abnormal finding- Primary Encounter for screening examination for sexually transmitted disease Screening for cervical cancer Screening for malignant neoplasm of the cervix Vaginal discharge Leukorrhea, not specified as infective Vaginal odor Unspecified symptom associated with female genital organs Screen for STD (sexually transmitted disease) Screening examination for venereal disease documented in this encounter [facility] Summary Purpose Family History No Family History Records Found Relationship Condition Age at Onset Recorded Date/T franklyn Not Specified No pertinent family history Unknown Relationship Condition Age at Onset Recorded Date/T franklyn grandparent No pertinent family history Unknown Polycystic kidney disease Unknown Advance Directives No Advanced Directives Records Found Advance Directive Response Recorded Date/ Time Advance Directives No November 15 7:13pm Advance Directive Response Recorded Date/ Time Advance Directives No November 15 6:13pm Chief Complaint and Reason for Visit Chief Complaint Z34.80 Chief Complaint z3A.25 N39.0 Z3A.25 Chief Complaint z3A.25 N39.0 Z3A.25 Z3A.36 37 wks iup, vaginal bleeding/pressure Chief Complaint NST IUP (Intrauterine ) F11.20 Reason for Visit Status post vaginal delivery Additional Source Comments INFORMATION SOURCE (unrecogn ized section and content) DATE CREATED AUTHOR 01/25/2022 Sharita Greenwood [facility] pital DATE CREATED AUTHOR AUTHOR'S ORGANIZ ATION 07/11/2023 [facility] EPIC DATE CREATED AUTHOR AUTHOR'S ORGANIZ ATION 08/22/2023 [facility] Care Teams (unrecognized sec tion and content) Team Status: Inactive Member Role Status Dates PHYSICIAN NO FAMILY Primary Care Provider Active Gera Bower DO Attending Provider Active Team Status: Active Member Role Status Dates PHYSICIAN NO FAMILY Primary Care Provider Active Team Status: Inactive Member Role Status Dates Gera Bower DO Attending Provider Active Team Status: Inactive Member Role Status Dates PHYSICIAN NO FAMILY Primary Care Provider Active Dae Prieto MD Attending Provider Active Team Status: Active Member Role Status Dates [facility] Primary Care Provider Active Team Status: Inactive Member Role Status Dates PHYSICIAN NO FAMILY Primary Care Provider Active Gera Bower , DO Admit Provider, Attending Provider Active Team Status: Inactive Member Role Status Dates [facility] Primary Care Provider Active Tex Vogel Jr, DO Attending Provider Active [employer]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 Denies breas t, urinary, bowel issues. Vaginal Discharge Some yellow discharg e, and some vaginal odor. FOR RECORDS PERTAINING TO PATIENTS WHO ARE OR HAVE BEEN ENROLLED IN A CHEMICAL DEPENDENCY/SUBSTANCEABUSE PROGRAM, SOME INFORMATION MAY BE OMITTED. This clinical summary was aggregated from multiple sources. Caution should be exercised in using it in the provision of clinical care. This summary normalizes information from multiple sources, and as a consequence, information in this document may materially change the coding, format and clinical context of patient data. In addition, data may be omitted in some cases. CLINICAL DECISIONS SHOULD BE BASED ON THE PRIMARY CLINICAL RECORDS. [employer] provides no warranty or guarantee of the accuracy or completeness of information in this document.
--- NOTE | 2024-06-22 13:23 | ED.GENADUL1 ---
HPI HPI - General Adult General Chief complaint: Recheck/Abnormal Lab/Rx Stated complaint: MASTITIS Time Seen by Provider: 06/22/24 12:36 Source: patient Mode of arrival: walk-in Limitations: no limitations History of Present Illness HPI narrative: The patient is coming to the ER to be evaluated for possible mastitis, she had mentioned that almost at the beginning of this month she had similar presentation when she was treated with antibiotic and she was feeling much better Today she is coming before it is getting worse and she noticed some mild tenderness in the medial aspect of the left breast Related Data Home Medications ?Medication ?Instructions ?Recorded ?Confirmed buprenorphine HCl 8 mg sublingual 16 mg sublingual .once daily 06/22/24 06/22/24 tablet Previous Rx's ?Medication ?Instructions ?Recorded acetaminophen 325 mg tablet 325 mg PO Q6H PRN pain #20 tabs 04/22/24 (Tylenol) dicloxacillin 500 mg capsule 500 mg PO Q6H 7 days #28 caps 04/22/24 ibuprofen 800 mg tablet 800 mg PO Q8H #20 tabs 04/22/24 dicloxacillin 500 mg capsule 500 mg PO Q6H 10 days #40 caps 06/22/24 Allergies Allergy/AdvReac Type Severity Reaction Status Date / Time No Known Drug Allergies Allergy Verified 06/22/24 12:35 Opioid HPI Opioid Management Most Recent Opioid Data: No Data to Display Review of Systems ROS Status of ROS 10 or more systems reviewed and unremarkable except as noted in history and below PFSH PFSH Social History Little interest or pleasure in doing things: not at all Feeling down, depressed, or hopeless: not at all Exam Narrative Exam Narrative: Nurses notes and vital signs reviewed and patient is not hypoxic. Breast examination evaluated with the patient nurse at the bedside, the patient breast examination shows mild enlargement of the left breast compared to the right but other than this there was no redness hotness or any significant swelling that was noted that is specific to one side more than the other, there is no masses noticed in the patient had no redness no inversion of the nipple and no discharge General: Well-appearing and in no apparent distress. Skin: Warm, dry, no pallor noted. No rash. Head: Normocephalic, atraumatic. Constitutional Vital Signs, click to edit/add: Last Vital Signs Temp 99.4 F 06/22/24 12:32 Pulse 68 06/22/24 13:30 Resp 16 06/22/24 13:30 BP 124/84 06/22/24 13:30 Pulse Ox 99 06/22/24 13:30 O2 Del Method Room Air 06/22/24 13:30 Course Vital Signs Vital signs: Vital Signs Temperature 99.4 F 06/22/24 12:32 Pulse Rate 96 H 06/22/24 12:32 Respiratory Rate 18 06/22/24 12:32 Blood Pressure 102/73 06/22/24 12:32 Pulse Oximetry 98 06/22/24 12:32 Oxygen Delivery Method Room Air 06/22/24 12:32 Temperature 99.4 F 06/22/24 12:32 Pulse Rate 68 06/22/24 13:30 Respiratory Rate 16 06/22/24 13:30 Blood Pressure 124/84 06/22/24 13:30 Pulse Oximetry 99 06/22/24 13:30 Oxygen Delivery Method Room Air 06/22/24 13:30 Medical Decision Making MDM Narrative Medical decision making narrative: I did explain to the patient that right now she will be provided with antibiotic again dicloxacillin and she will continue doing the supportive care that she was doing before but she need to establish a primary care for further evaluation with an ultrasound in case she is still continue to have the discomfort As per my evaluation right now there was no obvious mastitis The patient is to follow up with primary care physician in next 2-3 days or to return to the emergency department should any of the signs or symptoms worsen or new symptoms develop. The patient agrees with the following Diagnosis and Treatment plan and the patient will be discharged home. Discharge Plan Discharge Chief Complaint: Recheck/Abnormal Lab/Rx Clinical Impression: Mastitis Patient Disposition: Home, Self-Care Time of Disposition Decision: 13:24 Condition: Good Mode of Transportation: Private Vehicle Prescriptions / Home Meds: New dicloxacillin 500 mg capsule 500 mg PO Q6H 10 Days Qty: 40 0RF No Action buprenorphine HCl 8 mg tablet, sublingual 16 mg SUBLINGUAL .once daily dicloxacillin 500 mg capsule 500 mg PO Q6H 7 Days Qty: 28 0RF ibuprofen 800 mg tablet 800 mg PO Q8H Qty: 20 0RF acetaminophen [Tylenol] 325 mg tablet 325 mg PO Q6H PRN (Reason: pain) Qty: 20 0RF Print Language: Greenlandic Instructions: Mastitis (ED) Referrals: Physician,Non-Staff, MD [Primary Care Provider] - 1 week Discharge Date/Time: 06/22/24 13:30
[2024-06-22 13:30] VITALS: BP 124/84; PULSE 68; O2SAT 99
== END 2024-06-22 13:30 | disposition home or self-care (01) ==
PROVIDERS: Emergency Provider Emergency Medicine
DX: N61.0 Mastitis without abscess (principal)
CPT/HCPCS: 99283